=== PATIENT | female | born 1940 | race Caucasian/White ===

== ENCOUNTER 2019-01-18 13:28 | Inpatient (IN) | payer MEDICARE, OTHER ==
[2019-01-18 14:44] LABS: % LYMPHOCYTES 3.2 % (20.0-50.0); % MONOCYTES 1.8 % (2.0-10.0); % NEUTROPHILS 91.8 % (40.0-80.0); BASOPHILE ABSOLUTE 0.4 Th/cumm (0-0.2); HEMATOCRIT 40.7 % (41.0-60); HEMOGLOBIN 13.8 gm/dL (12-16); LYMPHOCYTE ABSOLUTE 0.4 Th/cmm (1.5-3.0); MEAN CELL VOLUME 95.1 fl (81-100); MEAN CORPUSCULAR HEMOGLOBIN 32.1 pg (27.0-31.0); MEAN CORPUSCULAR HGB CONC 33.8 pg (28.0-36.0); MONOCYTE ABSOLUTE 0.2 Th/cmm (0.3-1.0); NEUTROPHILE ABSOLUTE 11.9 Th/cmm (1.8-8.0); PLATELET COUNT 306 Th/cmm (150-400); RED BLOOD COUNT 4.28 Mil/cmm (3.80-5.20); RED CELL DISTRIBUTION WIDTH 12.8 % (11.5-20.0); WHITE BLOOD COUNT 12.9 Th/cmm (4.8-10.8)
[2019-01-18 14:45] LABS: % BASOPHILS 3.1 % (0.0-2.0); % EOSINOPHILS 0.1 % (0.0-5.0)
[2019-01-18 14:58] LABS: INR 1.05 (0.5-1.4)
[2019-01-18 15:03] LABS: ALB/GLOB RATIO 1.3 (1.0-1.8); ALBUMIN 3.5 gm/dL (3.7-5.3); ALKALINE PHOSPHATASE 70 U/L (34-104); ANION GAP 13.8 (7.0-16.0); BILIRUBIN,TOTAL 0.4 mg/dL (0.3-1.0); BUN - UREA NITROGEN 30 mg/dL (7-25); CALCIUM SERUM 8.7 mg/dL (8.6-10.3); CARBON DIOXIDE 22.3 mEq/L (21.0-31.0); CHLORIDE 84 mEq/L (98-107); CREATININE KINASE 61 U/L (30-223); GLUCOSE 281 mg/dL (70-105); POTASSIUM SERUM 4.1 mEq/L (3.5-5.1); SGOT 15 U/L (13-39); SGPT/ALT 11 U/L (7-52); TOTAL PROTEIN,SERUM 6.2 gm/dL (6.0-8.3)
[2019-01-18 15:06] LABS: SODIUM SERUM 116 mEq/L (136-145)
--- NOTE | 2019-01-18 15:09 | ED Physician Chart ---
ED Chief Complaint/HPI - Patient Information Date Seen:: 01/18/19 Time Seen:: 13:40 Chief Complaint:: Weakness History of Present Illness:: onset x 3 days of weakness, failure to thrive, and poor oral intake; no report of trauma, H/As, neck pain, cough, C/P, SOB, Abd. PAIN< A/N/V/D/C, fever, chills , or urinary s/s Allergies:: Allergies Allergy/AdvReac Type Severity Reaction Status Date / Time lactose Allergy Verified 01/18/19 13:41 Vitals:: Vital Signs - 8 hr 01/18/19 13:42 Temp 98.2 F HR 89 RR 22 BP 123/55 O2 Sat % 95 Historian:: Patient, EMS, Family Member Review:: Nurse's Note Reviewed, Old Chart Reviewed, EMS run form Reviewed ED Review of Systems - Review of Systems General/Constitutional: No fever, No chills, No weight loss, Weakness, No diaphoresis, No edema, No loss of appetite Skin: No skin lesions, No rash, No bruising Head: No headache, No light-headedness Eyes: No loss of vision, No pain, No diplopia ENT: No earache, No nasal drainage, No sore throat, No tinnitus Neck: No neck pain, No swelling, No thyromegaly, No stiffness, No mass noted Cardio Vascular: No chest pain, No palpitations, No PND, No orthopnea, No edema Pulmonary: No SOB, No cough, No sputum, No wheezing GI: No nausea, No vomiting, No diarrhea, No pain, No melena, No hematochezia, No constipation, No hematemesis G/U: No dysuria, No frequency, No hematuria, No nacturia Wastewater Design Engineer: No vaginal discharge, No abnormal vaginal bleed, No contraction Musculoskeletal: No bone or joint pain, No back pain, No muscle pain Endocrine: No polyuria, No polydipsia Psychiatric: No prior psych history, No depression, No anxiety, No suicidal ideation, No homicidal ideation, No auditory hallucination, No visual hallucination Hematopoietic: No bruising, No lymphadenopathy Allergic/Immuno: No urticaria, No angioedema Neurological: No syncope, No focal symptoms, Weakness, No paresthesia, No headache, No seizure, No dizziness, No vertigo ED Past Medical History - Past Medical History Obtainable: Yes Past Medical History: HTN, DM, Dyslipidemia, Arthritis, Dementia Family History: Diabetes Melitus, HTN Social History: Non Smoker, No Alcohol, No Drug Use, , Care Facility Surgical History: None Psychiatricy History: Dementia Medication: Reviewed ED Physical Exam - Physical Examination General/Constitutional: Awake, Well-developed, well-nourished, Alert, No distress, GCS 15, Non-toxic appearing, Ambulatory Head: Atraumatic Eyes: Lids, conjuctiva normal, PERRL, EOMI Skin: Nl inspection, No rash, No skin lesions, No ecchymosis, Well hydrated, No lymphadenopathy ENMT: External ears, nose nl, TM canals nl, Nasal exam nl, Lips, teeth, gums nl , Oropharynx nl, Tonsils nl Neck: Nontender, Full ROM w/o pain, No JVD, No nuchal rigidity, No bruit, No mass, No stridor Respiratory: Nl effort/Exclusion, Clear to Auscultation, No Wheeze/Rhonchi/Rales Cardio Vascular: RRR, No murmur, gallop, rubs, NL S1 S2, Carotid/Femoral/Distal pulses equal bilaterally GI: No tenderness/rebounding/guarding, No organomegaly, No hernia, Normal BS's, Nondistended, No mass/bruits, No McBurney tenderness : No CVA tenderness Extremities: No tenderness or effusion, Full ROM, normal strength in all extremities, No edema, Normal digits & nails Neuro/Psych: Alert/oriented, DTR's symmetric, Normal sensory exam, Normal motor strength, Judgement/insight normal, Mood normal, Normal gait, No focal deficits Misc: Normal back, No paraspinal tenderness ED Labs/Radiology/EKG Results - Lab Results Results: Laboratory Tests 01/18/19 01/18/19 14:34 14:34 WBC 12.9 H RBC 4.28 Hgb 13.8 Hct 40.7 L MCV 95.1 MCH 32.1 H MCHC Differential 33.8 RDW 12.8 Plt Count 306 MPV 7.3 Neutrophils % 91.8 H Lymphocytes % 3.2 L Monocytes % 1.8 L Eosinophils % 0.1 Basophils % 3.1 H Neutrophils (Manual) Not Reportable PT 10.9 INR 1.05 PTT (Actin FS) 32.8 Comments:: Reviewed - Radiology Results Comments:: CXR: + Infiltrate - EKG Interpretations Rate & Rhythm: NSR Comments:: non-specific st-t changes ED Septic Shock - . Is Septic Shock (SBP<90, OR Lactate>4 mmol\L) present?: No - <6hrs of presentation: Vital Signs: Vital Signs - 8 hr 01/18/19 13:42 Temp 98.2 F HR 89 RR 22 BP 123/55 O2 Sat % 95 ED Reassessment (Disposition) - Reassessment Reassessment Condition:: Improved - Diagnosis Diagnosis:: Weakness; Failure to Thrive; Poor Oral Intake; Dehydration; Hyponatremia; Leukocytosis; PNA; Sepsis; Hyperglycemia; Lactic Acidosis; DM; Elevated Lactic Acid - Aftercare/Follow up Instructions Aftercare/Follow-Up Instructions:: Counseled pt regarding lab results/diagnosis & need follow up, Counseled pt & family regarding lab results/diagnosis & need follow up - Patient Disposition Discharge/Transfer:: Acute Care w/in this hosp Accepting Physician:: Dr. Jorgensen Time Called:: 1529 Time Responded:: 15:30 Admitted to:: Telemetry Spoke to:: Dr. Jorgensen Admitting Medical Physician:: Dr. Jorgensen Condition at Disposition:: Stable, Improved
[2019-01-18] MEDS ORDERED: Levofloxacin 500mg/100mL 500 MG/100 ML BAG IV ONE ×2 (15:12→16:16)
[2019-01-18] MEDS ORDERED: Sodium Chloride 0.9% 1,000 ML IV ONE (15:12)
[2019-01-18] MEDS ORDERED: INSULIN HUMAN REGULAR 100 UNITS/ML UNIT SUBQ ONE (15:13)
[2019-01-18 16:45] LABS: URINE SOURCE MIDSTREAM
[2019-01-18 16:53] LABS: URINE BILIRUBIN NEGATIVE (NEGATIVE); URINE BLOOD TRACE (NEGATIVE); URINE GLUCOSE (UA) 100 mg/dL (NEGATIVE); URINE KETONE NEGATIVE (NEGATIVE); URINE LEUKOCYTE ESTERASE NEGATIVE (NEGATIVE); URINE MICROSCOPIC INDICATED? YES; URINE NITRATE NEGATIVE (NEGATIVE); URINE PH 5.5 (4.6 - 8.0); URINE PROTEIN NEGATIVE (NEGATIVE); URINE UROBILINOGEN 0.2 E.U./dL (0.2 - 1.0)
[2019-01-18 16:57] LABS: URINE CLARITY CLEAR (CLEAR); URINE COLOR YELLOW
[2019-01-18 17:07] LABS: URINE WBC NONE SEEN /hpf (0-5)
[2019-01-18 17:08] LABS: URINE BACTERIA NONE SEEN /hpf (NONE SEEN); URINE EPITHELIAL CELLS RARE /lpf (FEW); URINE RED BLOOD CELL CAST 0-2 /lpf (NONE SEEN)
[2019-01-18 17:09] LABS: URINE FINE GRANULAR CAST 0-2 /lpf (NONE SEEN)
[2019-01-18 22:34] VITALS: BP 135/67
[2019-01-18] MEDS: Hydrocodone/APAP 5mg/325mg Tab PO PRN (22:49)
[2019-01-19] MEDS ORDERED: Sodium Chloride 3% 500 ML IV ONE (01:35)
[2019-01-19 05:21] LABS: BASOPHILE ABSOLUTE 0.1 Th/cumm (0-0.2); EOSINOPHILE ABSOLUTE 0.1 Th/cmm (0.1-0.4); HEMATOCRIT 38.1 % (41.0-60); HEMOGLOBIN 13.1 gm/dL (12-16); LYMPHOCYTE ABSOLUTE 0.7 Th/cmm (1.5-3.0); MEAN CELL VOLUME 95.1 fl (81-100); MEAN CORPUSCULAR HEMOGLOBIN 32.6 pg (27.0-31.0); MEAN CORPUSCULAR HGB CONC 34.3 pg (28.0-36.0); MONOCYTE ABSOLUTE 0.3 Th/cmm (0.3-1.0); NEUTROPHILE ABSOLUTE 13.3 Th/cmm (1.8-8.0); PLATELET COUNT 273 Th/cmm (150-400); RED BLOOD COUNT 4.01 Mil/cmm (3.80-5.20); RED CELL DISTRIBUTION WIDTH 12.8 % (11.5-20.0); WHITE BLOOD COUNT 14.5 Th/cmm (4.8-10.8)
[2019-01-19 05:41] LABS: % BASOPHILS 0.2 % (0.0-2.0); % EOSINOPHILS 0.8 % (0.0-5.0); % LYMPHOCYTES 4.3 % (20.0-50.0); % MONOCYTES 2.3 % (2.0-10.0); % NEUTROPHILS 92.4 % (40.0-80.0)
[2019-01-19 06:05] LABS: A1C 6.1 % (4.8-5.6)
[2019-01-19 06:06] LABS: ANION GAP 12.9 (7.0-16.0); BUN - UREA NITROGEN 25 mg/dL (7-25); CALCIUM SERUM 8.1 mg/dL (8.6-10.3); CARBON DIOXIDE 22.3 mEq/L (21.0-31.0); CHLORIDE 88 mEq/L (98-107); CREATININE - SERUM 0.8 mg/dL (0.6-1.2); POTASSIUM SERUM 4.2 mEq/L (3.5-5.1)
[2019-01-19 06:13] LABS: SODIUM SERUM 119 mEq/L (136-145)
[2019-01-19 06:16] LABS: BASOPHIL 0.8 % (0-3); EOSINOPHIL 0.5 % (0-5); MONOCYTE 2.4 % (2-10); NEUTROPHILS 91.3 % (40-80)
[2019-01-19 07:45] LABS: GLUCOSE 118 mg/dL (70-105)
--- NOTE | 2019-01-19 08:24 | Diagnostic Imaging Report ---
Portable chest x-ray Time: 1457 History: Pain Allowing for portable technique the heart size is normal. No focal pulmonary parenchymal processes. No hilar or mediastinal abnormalities. Impression: No acute abnormalities.
[2019-01-19] MEDS ORDERED: Pneumococcal Vaccine 0.5 mL Vial IM ONE (10:00)
[2019-01-19] MEDS: Hydrocodone/APAP 5mg/325mg Tab PO PRN (10:50)
[2019-01-19] MEDS ORDERED: Hydrocodone/APAP 5mg/325mg Tab PO ONE (12:30)
[2019-01-19] MEDS: Mag Sulfate 2gm/50mL Premix 2 GM/50 ML BAG IV SCH ×2 (12:34→15:00)
[2019-01-19] MEDS: Levofloxacin 250mg/50mL 250 MG/50 ML BAG IV SCH (15:57)
[2019-01-19] MEDS: D5-0.9%NS 1,000 ML IV SCH (17:22)
[2019-01-19] MEDS ORDERED: Hydrocodone/APAP 5mg/325mg Tab PO PRN (17:42)
--- NOTE | 2019-01-19 17:55 | History & Physical ---
ADMIT DATE: 01/19/2019 CHIEF COMPLAINT: Increase in weakness. HISTORY OF PRESENT ILLNESS: This is a 78-year-old female who has a 3-day history of increase of weakness, poor oral intake. In the ER, the patient was noted to be hyponatremic of 116 and a lactic acid of 2.62. No reports of any fevers at home. For further management, the patient is now admitted to the telemetry unit. PAST MEDICAL HISTORY: Hypertension, diabetes, dyslipidemia, arthritis, and dementia. FAMILY HISTORY: Noncontributory. SOCIAL HISTORY: The patient is a intermediate resident. SURGICAL HISTORY: Unknown. MEDICATIONS: See medication list. REVIEW OF SYSTEMS: GENERAL: Denies any complains of weakness. CARDIOVASCULAR: Denies chest pain. RESPIRATORY: No shortness of breath. GASTROINTESTINAL: Denies nausea, vomiting, or abdominal pain. GENITOURINARY: No dysuria. All other systems are reviewed. PHYSICAL EXAMINATION: GENERAL: The patient is an elderly female, weak, in no apparent distress. VITAL SIGNS: Temperature 97.6, heart rate 95, blood pressure 152/63, respiration 18, O2 97%. HEENT: Head normocephalic, atraumatic. NECK: Supple. No mass. LUNGS: Clear bilaterally. HEART: Regular rate and rhythm. ABDOMEN: Soft, nontender. LABORATORY DATA: WBC 14.5, H and H 13.1 and 38.1, platelets of 273. Sodium of 119, potassium 4.2, chloride of 88, BUN 25, creatinine 0.8, magnesium of 1.8. The patient had a urinalysis done, positive for UTI. DIAGNOSTIC DATA: The patient had a chest x-ray done. Impression is no acute abnormalities. ASSESSMENT: Failure to thrive, lactic acidosis, rule out possible sepsis, acute UTI, hypomagnesemia, severe hyponatremia, vasomotor nephropathy, hypocalcemia, moderate protein-calorie malnutrition. PLAN: The patient to be admitted to the telemetry unit. We will get a motion picture projectionist as well as ID on the case. We will give the patient IV fluids for hydration. The patient is on IV antibiotics of Levaquin. We will continue to monitor this patient. JOB# [id number]
[2019-01-19] MEDS ORDERED: Simethicone 20 mg/0.3 mL 30mL Bottle PO PRN (21:09)
--- NOTE | 2019-01-20 03:14 | Consultation ---
DATE OF CONSULTATION: AGE OF THE PATIENT: 78 years. SEX: Female. HISTORY OF PRESENT ILLNESS: This is a patient who was having significant pains and aches in the abdomen and lower extremities, was brought in here because of the fact on further evaluation was noted to be having marked hyponatremia. On direct questioning, the patient states she has been having high blood pressure for some time, for which she had been on medications. She gets aches and pains in the legs and also the back for which she takes some arthritic medications. No other significant history could be elicited except that the patient had some sort of a bone biopsy from the skull because there was suspected of tumor, which came out to be negative and that was done in [facility] in [place]. In addition to that, the patient also has an umbilical hernia repair. Besides that, she denies any history of any other surgeries. The patient seems to be awake, alert, seems to be in pain because legs are cramping. The patient also stated that she had yesterday 5 bowel movements, loose with cramping and pain. She does not remember whether she looked at them very well or not and as per her taking out here, there was no blood there, but they were loose, runny and mushy. The patient denies any such problems before yesterday. The patient does not remember if patient was on any water pills. MEDICATIONS: Her current medications include, as per the records, amlodipine 5 mg p.o. daily. The patient is also on ranitidine 150 mg p.o. b.i.d. The patient is also on hydrocodone, acetaminophen combination one tablet b.i.d. Besides that, the patient is on some meloxicam 7.5 mg p.o. b.i.d., Xanax 0.25 mg p.o. daily. The patient is also on lisinopril 20 mg p.o. daily and the patient at present is on levothyroxine 75 mcg p.o. daily. No other medications as far as patient knows or the nurse knows. The patient's clinical examination reveals at present, conscious, cooperative, good historian. 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 She never smoked, but she was exposed to smoke and she hated that. She did not have any major lung problem, but still feels that she might have been affected by that. On further questioning, no other significant history could be elicited. The patient had a high blood pressure problem for quite some time. PHYSICAL EXAMINATION: GENERAL: Reveals the patient to be conscious, cooperative, alert, seems to be in mild to moderate pain. VITAL SIGNS: The patient's vitals yesterday afternoon revealed temperature 98.2, heart rate 89, rate 22 per minute, blood pressure 123/55, saturation ____. NECK: Jugular venous pressure clinically is not raised. CHEST: Reveals reasonably good air entry bilaterally. HEART: Sounds S1, S2 normally heard. No S3 or S4 noticed. ABDOMEN: Soft, nontender, but she complains of ____ cramps or pains in the right side of the abdomen. The patient had "as said 5 bowel movements yesterday and 1 bowel movement this morning," this morning was loose, dark colored and smelly as per the nurse. EKG reveals basically sinus rhythm at a rate of about 90 per minute. Skin turgor seems to be normal. The patient at present is getting 15 mL per hour, 3% saline. Biochemical data from yesterday was sodium 116 when she presented, chloride 84, CO2 content 22, potassium 4.1, albumin 3.5, calcium 8.7. Liver enzymes essentially normal. There was a lactic acid done, which was 2.62, BUN was 30, creatinine was 1.0 and glucose was 281. This morning, the patient's WBC count is 14.5, hemoglobin 13.1, WBC count as already mentioned, differential reveals 92% neutrophils. Sodium 119, potassium 4.2, chloride 88, CO2 content 22, creatinine 0.8, and calcium 8.1. IMPRESSION: 1. Considering the above, it seems like to me at present patient does have a significant hyponatremia, could be for multiple reasons including diarrhea and including lost sodium. 2. The patient may also have an underlying problem due to diarrhea, losing salt, but also to rule out any underlying other problems like syndrome of inappropriate ADH salt losing nephropathy or patient might have been on diuretics because she is hypotensive. PLAN: At present, would suggest: 1. Do stool for C. difficile toxin because she had 5 loose bowel movements yesterday. 2. Magnesium level stat. 3. Giving some IV fluids with 3% sodium 150 mL and then patient may be on D5 normal saline to provide both dextrose and IV fluids so that she does not become dehydrated. In the meantime, the patient would be treated accordingly for infection because it looks like she does have some sort of an infective process because of leukocyte count of 92%, history of diarrhea and C. difficile is one of the common ones, but the patient could also have other problems with enteric bacteria. Would repeat the chemistries and follow it closely. Thanking you very much Dr. Jorgensen for this consultation and I will talk to you. JOB# [id number]
[2019-01-20 05:08] LABS: HEMATOCRIT 36.5 % (41.0-60); HEMOGLOBIN 12.5 gm/dL (12-16); MEAN CELL VOLUME 93.7 fl (81-100); MEAN CORPUSCULAR HEMOGLOBIN 32.2 pg (27.0-31.0); MEAN CORPUSCULAR HGB CONC 34.3 pg (28.0-36.0); PLATELET COUNT 292 Th/cmm (150-400); RED BLOOD COUNT 3.89 Mil/cmm (3.80-5.20); RED CELL DISTRIBUTION WIDTH 12.9 % (11.5-20.0)
[2019-01-20 05:57] LABS: BAND NEUTROPHILE 12 % (0-10); LYMPHOCYTE 11 % (20-50); MONOCYTE 7 % (2-10); NEUTROPHILS 70 % (40-80); PLATELET ESTIMATE ADEQUATE (NORMAL)
[2019-01-20 06:08] LABS: ALB/GLOB RATIO 1.2 (1.0-1.8); ALBUMIN 2.8 gm/dL (3.7-5.3); ALKALINE PHOSPHATASE 56 U/L (34-104); ANION GAP 10.8 (7.0-16.0); BILIRUBIN,TOTAL 0.3 mg/dL (0.3-1.0); CALCIUM SERUM 7.7 mg/dL (8.6-10.3); CARBON DIOXIDE 21.3 mEq/L (21.0-31.0); CHLORIDE 95 mEq/L (98-107); CREATININE - SERUM 0.7 mg/dL (0.6-1.2); GLUCOSE 132 mg/dL (70-105); MAGNESIUM 2.4 mg/dL (1.9-2.7); POTASSIUM SERUM 4.1 mEq/L (3.5-5.1); SGOT 12 U/L (13-39); SGPT/ALT 7 U/L (7-52); SODIUM SERUM 123 mEq/L (136-145); TOTAL PROTEIN,SERUM 5.2 gm/dL (6.0-8.3)
[2019-01-20 06:25] LABS: BUN - UREA NITROGEN 13 mg/dL (7-25)
[2019-01-20] MEDS: Levothyroxine 0.075 Mg Tab PO SCH (06:36)
[2019-01-20] MEDS ORDERED: Sodium Chloride 3% 500 ML IV ONE (08:22)
[2019-01-20] MEDS: Vancomycin HCL 250 mg /10mL UDC PO SCH ×4 (08:39→20:11)
[2019-01-20] MEDS ORDERED: Non-Formulary Item 1 EA (Meloxicam [Meloxicam] 7.5 MG) PO SCH (09:00)
[2019-01-20] MEDS: Hydrocodone/APAP 5mg/325mg Tab PO PRN ×3 (09:03→21:28)
--- NOTE | 2019-01-20 09:34 | Consultation ---
DATE OF CONSULTATION: 01/19/2019 PSYCHIATRIC CONSULTATION PATIENT'S AGE: 78. SEX: Female. CHIEF COMPLAINT: Depression. HISTORY OF PRESENT ILLNESS: The patient is a 78-year-old female who is a resident in the [facility]. The staff in [facility] noted that the patient has been increasingly depressed and anxious. The patient also has been feeling hopeless and helpless. The patient also has been crying a lot. Upon admission to the hospital, the patient was complaining of diarrhea and the patient was admitted to the Med-Surg floor, where I evaluated the patient. The patient has been depressed because of "I have a lot of pain." The patient has been feeling hopeless and helpless. She also has been crying a lot. The patient said that she was living with her because of increased pain. The patient was moved to live in the [facility] temporarily because her son is unable to take care of her at this time. The patient also has been having difficulty with her sleep and has been severely anxious. PAST PSYCHIATRIC HISTORY: The patient has anxiety and was taking Xanax. PAST MEDICAL HISTORY: The patient was admitted to the hospital because of diarrhea and the stool culture came back positive for C. diff and she is on antibiotics at this time. The patient has a history of hypothyroidism also. SOCIAL HISTORY: The patient is a and her 5 years ago. The patient said that she has 6 children. The patient denies any alcohol or any street drug use. ALLERGIES: No known allergies. MENTAL STATUS EXAM: The patient appears her stated age. Anxious. Sad affect. In a depressed mood. Thought processes are mainly goal directed. The patient denies any auditory or visual hallucinations or delusions. She denies any thoughts of suicide or homicide. The patient is alert and oriented to time, place, person and situation. Intact immediate, recent and remote memories. Fair insight and fair judgment. Seems to be of average intelligence based on her verbal ability. ASSESSMENT: PRIMARY DIAGNOSIS: Depressive mood disorder, unspecified. TREATMENT PLAN: We will monitor the patient's behavior closely. We will work on her ineffective coping. We will start the patient on Cymbalta 30 mg every day and we will adjust the dose. Also, if the patient continued to be depressed when medically cleared, the patient is a candidate to go for inpatient Geropsych to adjust her medications and work on her ineffective coping. Thanks to Dr. Andrés Scanlon/Dr. Jorgensen and will followup with you. JOB# [id number]
[2019-01-20] MEDS ORDERED: metroNIDAZOLE 500mg/NS 100mL 500 MG/100 ML BAG IV SCH (13:00)
--- NOTE | 2019-01-20 16:06 | Internal Medicine Prog Note ---
Internal Medicine Subjective - Subjective Service Date: 01/20/19 Patient seen and examined:: with staff Patient is:: awake, verbal Patient Complaints of:: other (Increased weakness.) Per staff patient has:: no adverse event, no episodes of fall Internal Medicine Objective - Results Result Diagrams: 01/20/19 04:55 01/20/19 04:55 Recent Labs: Laboratory Last Values WBC 14.0 Th/cmm (4.8-10.8) H 01/20/19 04:55 RBC 3.89 Mil/cmm (3.80-5.20) 01/20/19 04:55 Hgb 12.5 gm/dL (12-16) 01/20/19 04:55 Hct 36.5 % (41.0-60) L 01/20/19 04:55 MCV 93.7 fl (81-100) 01/20/19 04:55 MCH 32.2 pg (27.0-31.0) H 01/20/19 04:55 MCHC Differential 34.3 pg (28.0-36.0) 01/20/19 04:55 RDW 12.9 % (11.5-20.0) 01/20/19 04:55 Plt Count 292 Th/cmm (150-400) 01/20/19 04:55 MPV 6.9 fl 01/20/19 04:55 Add Manual Diff YES 01/20/19 04:55 Neutrophils % 92.4 % (40.0-80.0) H 01/19/19 05:05 Band Neutrophils % 12 % (0-10) H 01/20/19 04:55 Lymphocytes % 4.3 % (20.0-50.0) L 01/19/19 05:05 Monocytes % 2.3 % (2.0-10.0) 01/19/19 05:05 Eosinophils % 0.8 % (0.0-5.0) 01/19/19 05:05 Basophils % 0.2 % (0.0-2.0) 01/19/19 05:05 Neutrophils (Manual) 70 % (40-80) 01/20/19 04:55 Lymphocytes 11 % (20-50) L 01/20/19 04:55 Monocytes 7 % (2-10) 01/20/19 04:55 Eosinophils 0.5 % (0-5) 01/19/19 05:05 Basophils 0.8 % (0-3) 01/19/19 05:05 Platelet Estimate ADEQUATE (NORMAL) 01/20/19 04:55 PT 10.9 SECONDS (9.5-11.5) 01/18/19 14:34 INR 1.05 (0.5-1.4) 01/18/19 14:34 PTT (Actin FS) 32.8 SECONDS (26.0-38.0) 01/18/19 14:34 Sodium 123 mEq/L (136-145) L 01/20/19 04:55 Potassium 4.1 mEq/L (3.5-5.1) 01/20/19 04:55 Chloride 95 mEq/L (98-107) L 01/20/19 04:55 Carbon Dioxide 21.3 mEq/L (21.0-31.0) 01/20/19 04:55 Anion Gap 10.8 (7.0-16.0) 01/20/19 04:55 BUN 13 mg/dL (7-25) 01/20/19 04:55 Creatinine 0.7 mg/dL (0.6-1.2) 01/20/19 04:55 Est GFR ( Amer) TNP 01/20/19 04:55 Est GFR (Non-Af Amer) TNP 01/20/19 04:55 BUN/Creatinine Ratio 18.6 01/20/19 04:55 Glucose 132 mg/dL (70-105) H 01/20/19 04:55 Whole Bld Lactic Acid 1.90 mmol/L (0.60-1.99) 01/18/19 16:40 Uric Acid 3.0 mg/dL (2.3-6.6) 01/20/19 04:55 Calcium 7.7 mg/dL (8.6-10.3) L 01/20/19 04:55 Magnesium 2.4 mg/dL (1.9-2.7) 01/20/19 04:55 Total Bilirubin 0.3 mg/dL (0.3-1.0) 01/20/19 04:55 AST 12 U/L (13-39) L 01/20/19 04:55 ALT 7 U/L (7-52) 01/20/19 04:55 Alkaline Phosphatase 56 U/L (34-104) 01/20/19 04:55 Creatine Kinase 61 U/L (30-223) 01/18/19 14:34 Troponin I 0.03 ng/mL (0.01-0.05) 01/18/19 14:34 Total Protein 5.2 gm/dL (6.0-8.3) L 01/20/19 04:55 Albumin 2.8 gm/dL (3.7-5.3) L 01/20/19 04:55 Globulin 2.4 gm/dL 01/20/19 04:55 Albumin/Globulin Ratio 1.2 (1.0-1.8) 01/20/19 04:55 Urine Source MIDSTREAM 01/18/19 16:00 Urine Color YELLOW 01/18/19 16:00 Urine Clarity CLEAR (CLEAR) 01/18/19 16:00 Urine pH 5.5 (4.6 - 8.0) 01/18/19 16:00 Ur Specific [place] 1.020 (1.005-1.030) 01/18/19 16:00 Urine Protein NEGATIVE mg/dL (NEGATIVE) 01/18/19 16:00 Urine Glucose (UA) 100 mg/dL (NEGATIVE) H 01/18/19 16:00 Urine Ketones NEGATIVE mg/dL (NEGATIVE) 01/18/19 16:00 Urine Blood TRACE (NEGATIVE) 01/18/19 16:00 Urine Nitrate NEGATIVE (NEGATIVE) 01/18/19 16:00 Urine Bilirubin NEGATIVE (NEGATIVE) 01/18/19 16:00 Urine Urobilinogen 0.2 E.U./dL (0.2 - 1.0) 01/18/19 16:00 Ur Leukocyte Esterase NEGATIVE (NEGATIVE) 01/18/19 16:00 Urine RBC 10-25 /hpf (0-5) H 01/18/19 16:00 Urine WBC NONE SEEN /hpf (0-5) 01/18/19 16:00 Ur Epithelial Cells RARE /lpf (FEW) 01/18/19 16:00 Urine Bacteria NONE SEEN /hpf (NONE SEEN) 01/18/19 16:00 Fine Granular Casts 0-2 /lpf (NONE SEEN) H 01/18/19 16:00 RBC Casts 0-2 /lpf (NONE SEEN) H 01/18/19 16:00 - Physical Exam Vitals and I&O: Vital Signs Temp 97.8 F 01/20/19 12:00 Pulse 82 01/20/19 12:00 Resp 18 01/20/19 14:35 BP 120/47 01/20/19 12:00 Pulse Ox 96 01/20/19 12:00 Intake & Output 01/19/19 01/20/19 01/20/19 18:59 06:59 18:59 Intake Total 100 200 Balance 100 200 Weight (lbs) 72.575 kg Intake: Intake, IV Amount 100 Levofloxacin 250mg/50mL 50 250 mg In 50 ml @ 50 mls/ hr IV Q24HR [facility] Rx#: [id number] Mag Sulfate 2gm/50mL 50 Premix 2 gm In 50 ml @ 25 mls/hr IV Q2H [facility] Rx#: [id number] Oral 200 Other: # Voids 2 # Bowel Movements 4 Stool Characteristics Soft Soft Soft Formed Formed Formed Weight Source Estimated Active Medications: Current Medications Acetaminophen/Hydrocodone Bitart ([place] 5mg/325mg) 1 tab PO Q6H PRN PRN Reason: Severe Pain Stop: 03/20/19 21:11 Last Admin: 01/20/19 15:36 Dose: 1 tab Alprazolam (Xanax) 0.25 mg PO Q12HR [facility]; Protocol Stop: 03/19/19 20:59 Last Admin: 01/20/19 09:02 Dose: Not Given Alprazolam (Xanax) 0.25 mg PO DAILY PRN; Protocol PRN Reason: Anxiety Stop: 03/20/19 17:41 Amlodipine Besylate (Norvasc) 5 mg PO DAILY [facility] Stop: 03/21/19 08:59 Last Admin: 01/20/19 08:41 Dose: 5 mg Baclofen (Lioresal) 10 mg PO TID PRN PRN Reason: Leg Cramps Stop: 03/19/19 20:59 Last Admin: 01/20/19 08:40 Dose: 10 mg Celecoxib (Celebrex) 100 mg PO BID [facility] Stop: 03/21/19 16:59 Duloxetine HCl (Cymbalta) 30 mg PO DAILY [facility]; Protocol Stop: 03/21/19 08:59 Famotidine (Pepcid) 20 mg PO DAILY [facility] Stop: 03/21/19 08:59 Last Admin: 01/20/19 08:40 Dose: 20 mg Levofloxacin (Levaquin Pb) 250 mg in 50 mls @ 50 mls/hr IV Q24HR [facility]; Protocol Stop: 03/20/19 15:59 Last Infusion: 01/19/19 16:57 Dose: Infused Dextrose/Sodium Chloride (D5-0.9%Ns) 1,000 mls @ 30 mls/hr IV .Q24H TC Stop: 03/20/19 17:29 Last Admin: 01/19/19 17:22 Dose: 30 mls/hr Metronidazole (Flagyl) 500 mg in 100 mls @ 100 mls/hr IV Q8HR TC Stop: 02/03/19 12:59 Last Admin: 01/20/19 13:16 Dose: 100 mls/hr Levothyroxine Sodium (Synthroid) 0.075 mg PO QDAC TC Stop: 03/21/19 07:29 Last Admin: 01/20/19 06:36 Dose: 0.075 mg Lisinopril (Zestril) [address] Stop: 03/21/19 08:59 Last Admin: 01/20/19 08:40 Dose: 20 mg Simethicone (Mylicon) 80 mg PO TID PRN PRN Reason: Gas Stop: 03/20/19 21:14 Last Admin: 01/20/19 05:00 Dose: 80 mg Vancomycin HCl (Vancomycin Oral) 250 mg PO QID TC Stop: 03/21/19 08:59 Last Admin: 01/20/19 12:12 Dose: 250 mg Physical Exam: 78 y/o female patient has increased weakness, depression and anxiety. General: weak, demented HEENT: NC/AT Neck: Supple Lungs: CTAB Cardiovascular: RRR, Normal S1 Abdomen: soft, non-tender Extremities: clear Neurological: no change Internal Medicine Assmt/Plan - Assessment Assessment: Diabetes. Arthritis. Dementia. Htn. Hx of Dyslipidemia. Increased weakness. Hypothyroidism. Anxiety. Depressed mood disorder. - Plan Plan: Continuation of care. Monitor Labs. Continue present meds as directed. Monitor vitals, Continue BP meds as directed. Monitor Diet/Nutritional support. Psych management per Psych. Pain Management. Physical therapy. Occupational therapy. Fall precaution, frequent nursing rounds, and as needed restraints to prevent fall. Safety precaution. Supportive care. Continue collaborating with consulting specialists, case management and nursing team. Will Monitor patient and continue current treatment plan as ordered Nutritional Asmnt/Malnutr-PDOC - Dietary Evaluation Malnutrition Findings (Please click <Entered> for more info): Nutritional Asmnt/Malnutrition Start: 01/19/19 14: 04 Text: Status: Complete Freq: Protocol: Document 01/19/19 14:04 SERAFIN (Rec: 01/19/19 14:29 SERAFIN [id number]) Nutritional Asmnt/Malnutrition Patient General Information Nutritional Screening High Risk Diagnosis HYPONATREMIA, DEHYDRATION, SEPSIS Pertinent Medical Hx/Surgical Hx HTN, DM, DYSLIPIDEMIA, ARTHRITIS, DEMENTIA Subjective Information PT IS A 78 YEAR OLD FEMALE ADMITTED D/T HYPONATREMIA, DEHYDRATION, SEPSIS. HT: 55 WT: 126 (57.27KG) BMI: 21.01 (Normal) GI: WNL, Non-tender, round BM: 01/19 x 6 I/O: 400/500 (-100) SKIN: Intact, redness on Sacrum LAUREN: 15 DIET ORDER: PUREED ESTIMATED ENERGY NEEDS: (Based on CBW) 8921-0617 KCALS (25-30 KCALS/ KG) 57-68G PRO (1-1.2 G/KG) 5178-5296 ML FLUIDS (25-30 ML/ KG) PT PO INTAKE 50% AT BREAKFAST AND 75% AT LUNCH ON 01/19, PER ERUM PINO IS CURRENTLY PROVIDING AN ESTIMATED 2537 KCALS AND 116.8 GM PRO. WITH PT PO INTAKE, PT IS RECEIVING AN ESTIMATED 1585 KCALS AND 73 PRO TO MEET 100% KCAL AND 100% PRO NEEDS-ADEQUATE. Consult on Blood sugar 228: Glucose Level decrease to 118 on 01/19. Will continue to monitor. Current Diet Order/ Nutrition Support Pureed Pertinent Medications D5-0.9na, Magnesium Sulfate @ 25mls/HR @2HRS, Hypertonic 3% @30mls/hr Pertinent Labs 01/19 HGB/HCT 13.1/38.1, Na 119 , Cl 88, GLUC 118, Ca 8.1 01/18 HGB/HCT 13.8/40.7, Na 116 , Cl 84, BUN/Cr 30/1.0, GLUC 281, Alb 3.5 Nutritional Hx/Data Height 1.65 m Height (Calculated Centimeters) 165.1 Current Weight (lbs) 57.153 kg Weight (Calculated Kilograms) 57.2 Weight (Calculated Grams) 34269.6 Grandin Body Weight 57 kg % Grandin Body Weight 105 Body Mass Index (BMI) 20.9 Weight Status Approriate GI Symptoms GI Symptoms None Last BM 01/19 x 6 Skin Integrity/Comment: Intact, redness on Sacrum Current %PO Fair (50-74%) Estimated Nutritional Goals BEE in Kcals: Using Current wt Calories/Kcals/Kg 25-30 Kcals Calculated 2365-0277 Protein: Using Current wt Protein g/k-1.2 Protein Calculated 57-68 Fluid: ml 8130-1258 ML FLUIDS (25-30 ML/ KG) Nutritional Problem 1. Problem Problem Altered nutrition related labs Etiology R/T medical condition Signs/Symptoms: AEB lab result Na 119, Cl 88, GLUC 118, Ca 8.1 Malnutrition Related to Morbid Obesity Malnutrition related to morbid obesity No Intervention/Recommendation Comments 1.Continue puree diet as ordered. Expected Outcomes/Goals Expected Outcomes/Goals 1. MONITOR WT, NUTRITION RELATED LABS, AND SKIN INTEGRITY TO TREND WNL 2. F/U LOW RISK IN 7 DAYS
[2019-01-20] MEDS: Levofloxacin 250mg/50mL 250 MG/50 ML BAG IV SCH (16:38)
--- NOTE | 2019-01-20 17:46 | Consultation ---
Consult Note - Consult Note Service Date: 01/20/19 Referring Physician: Jason Jorgensen Consult Note: PHYSICIAN Consultation Note: Date of Admission: 01/18/19 Purpose of Consultation: C diff colitis Chief Complaint: weakness, diarrhea History of Present Illness: Patient JONI BRIDGES was admitted to [facility] Telemetry with HYPONATREMIA, DEHYDRATION, SEPSIS. Past Medical History: patient is 69 year old female with history of DM2, HTN, for generalized weakness x 3days. It was associated with failure to thrive, and poor oral intake; no report of trauma, H/As, neck pain, cough, C/P, SOB, Abd. PAIN< A/N/V/D/C, fever, chills, or urinary s/s. yesterday, she had developed diarrhea, and stool for c diff was checked it came positive. ID consult was called and vanco po qid was Diagnoses SEPSIS, UNSPECIFIED ORGANISM (01/18/19) MODERATE PROTEIN-CALORIE MALNUTRITION (01/18/19) HYPOMAGNESEMIA (01/18/19) HYPOCALCEMIA (01/18/19) HYPO-OSMOLALITY AND HYPONATREMIA (01/18/19) MAJOR DEPRESSIVE DISORDER, SINGLE EPISODE, UNSPECIFIED (01/18/19) ACUTE KIDNEY FAILURE WITH TUBULAR NECROSIS (01/18/19) URINARY TRACT INFECTION, SITE NOT SPECIFIED (01/18/19) WEAKNESS (01/18/19) Allergies Allergy/AdvReac Type Severity Reaction Status Date / Time lactose Allergy Verified 01/18/19 13:41 Vital Signs Temp 97.7 F 01/20/19 16:00 Pulse 87 01/20/19 16:00 Resp 18 01/20/19 16:00 BP 141/51 01/20/19 16:00 Pulse Ox 99 01/20/19 16:00 Intake & Output 01/19/19 01/20/19 01/20/19 18:59 06:59 18:59 Intake Total 100 200 Balance 100 200 Weight (lbs) 72.575 kg Intake: Intake, IV Amount 100 Levofloxacin 250mg/50mL 50 250 mg In 50 ml @ 50 mls/ hr IV Q24HR [facility] Rx#: [id number] Mag Sulfate 2gm/50mL 50 Premix 2 gm In 50 ml @ 25 mls/hr IV Q2H [facility] Rx#: [id number] Oral 200 Other: # Voids 2 # Bowel Movements 4 Stool Characteristics Soft Soft Soft Formed Formed Formed Weight Source Estimated Laboratory Results - last 24 hr 01/20/19 01/20/19 04:55 04:55 WBC 14.0 H RBC 3.89 Hgb 12.5 Hct 36.5 L MCV 93.7 MCH 32.2 H MCHC Differential 34.3 RDW 12.9 Plt Count 292 MPV 6.9 Add Manual Diff YES Band Neutrophils % 12 H Neutrophils (Manual) 70 Lymphocytes 11 L Monocytes 7 Platelet Estimate ADEQUATE Sodium 123 L Potassium 4.1 Chloride 95 L Carbon Dioxide 21.3 Anion Gap 10.8 BUN 13 Creatinine 0.7 Est GFR ( Amer) TNP Est GFR (Non-Af Amer) TNP BUN/Creatinine Ratio 18.6 Glucose 132 H Uric Acid 3.0 Calcium 7.7 L Magnesium 2.4 Total Bilirubin 0.3 AST 12 L ALT 7 Alkaline Phosphatase 56 Total Protein 5.2 L Albumin 2.8 L Globulin 2.4 Albumin/Globulin Ratio 1.2 Home Medication Medication Instructions Recorded Type Alprazolam [Alprazolam*] 0.25 mg PO DAILY PRN 01/18/19 History Amlodipine Besylate 5 mg PO DAILY 01/18/19 History Hydrocodone/Acetaminophen [[place] 1 each PO BID PRN 01/18/19 History 5-325 Tablet] Levothyroxine [Synthroid] 0.075 mg PO QDAC 01/18/19 History Lisinopril 20 mg PO DAILY 01/18/19 History Meloxicam 7.5 mg PO BID 01/18/19 History Ranitidine HCl 150 mg PO BID 01/18/19 History Current Medications Generic Name Dose Route Start Last Admin Trade Name Freq PRN Reason Stop Dose Admin Acetaminophen/Hydrocodone Bitart 1 tab 01/19/19 21:12 01/20/19 15:36 [place] 5mg/325mg PO 03/20/19 21:11 1 tab Q6H PRN Administration Severe Pain Alprazolam 0.25 mg 01/18/19 21:00 01/20/19 09:02 Xanax PO 03/19/19 20:59 Not Given Q12HR TC Protocol Alprazolam 0.25 mg 01/19/19 17:42 Xanax PO 03/20/19 17:41 DAILY PRN Anxiety Protocol Amlodipine Besylate 5 mg 01/20/19 09:00 01/20/19 08:41 Norvasc PO 03/21/19 08:59 5 mg DAILY TC Administration Baclofen 10 mg 01/18/19 20:59 01/20/19 16:39 Lioresal PO 03/19/19 20:59 10 mg TID PRN Administration Leg Cramps Celecoxib 100 mg 01/20/19 17:00 01/20/19 16:39 Celebrex PO 03/21/19 16:59 100 mg BID TC Administration Dorzolamide HCl 1 drop 01/20/19 17:30 Trusopt 2% Ophth Soln EACH EYE 03/21/19 17:29 BID TC Duloxetine HCl 30 mg 01/20/19 09:00 Cymbalta PO 03/21/19 08:59 DAILY TC Protocol Famotidine 20 mg 01/20/19 09:00 01/20/19 08:40 Pepcid PO 03/21/19 08:59 20 mg DAILY TC Administration Levofloxacin 250 mg in 50 mls @ 50 mls/hr 01/19/19 16:00 01/20/19 16:38 Levaquin Pb IV 03/20/19 15:59 50 mls/hr Q24HR TC Administration Protocol Dextrose/Sodium Chloride 1,000 mls @ 30 mls/hr 01/19/19 17:30 01/19/19 17:22 D5-0.9%Ns IV 03/20/19 17:29 30 mls/hr .Q24H TC Administration Metronidazole 500 mg in 100 mls @ 100 mls/hr 01/20/19 13:00 01/20/19 13:16 Flagyl IV 02/03/19 12:59 100 mls/hr Q8HR TC Administration Levothyroxine Sodium 0.075 mg 01/20/19 07:30 01/20/19 06:36 Synthroid PO 03/21/19 07:29 0.075 mg QDAC TC Administration Lisinopril 20 mg 01/20/19 09:00 01/20/19 08:40 Zestril PO 03/21/19 08:59 20 mg DAILY TC Administration Simethicone 80 mg 01/19/19 21:16 01/20/19 05:00 Mylicon PO 03/20/19 21:14 80 mg TID PRN Administration Gas Timolol Maleate 1 drop 01/20/19 21:00 Timoptic 0.5% Ophth Soln EACH EYE 03/21/19 20:59 BID TC Vancomycin HCl 250 mg 01/20/19 09:00 01/20/19 16:37 Vancomycin Oral PO 03/21/19 08:59 250 mg QID TC Administration Review of Systems: A 12 point ROS was reviewed with the pertinent positive and negatives noted in the HPI. Social History Smoking Status Unknown if ever smoked Drug Use No Alcohol Use No Family Medical History Unknown. Physical Exam: General: Comfortable, not in any acute distress HEENT: Head: NC NT. Oral cavity: moist, pink tongue, Eyes: pupil PERRLA, EOMI. pallor is present. Neck: Supple, no JVD, no carotid bruit. Cardio: s1 and S2 WNL. Respiratory: CTAP Abdominal: Soft, nt nd bs+ Genital/Urinary: Extremities: ncce Neurological: aaox3 Assessment: 1. CDIFF COLITIS. 2. DM2 3. HTN. 4. hyponatremia. 5. dehydration. Plan: YING cagle start vanco PO and questran. Contact isolation. Thank you, Dr Jorgensen for involving me in taking care of this patient. Signed, Andrés Scanlon M.D. [id number]
[2019-01-20] MEDS: D5-0.9%NS 1,000 ML IV SCH (21:27)
--- NOTE | 2019-01-21 02:23 | Progress Notes ---
DATE: 01/20/2019 SUBJECTIVE: This patient who presented with hyponatremia, also problem with diarrhea and feeling very weak. The patient's initial sodium was 116. Other chemistries were reasonably okay except for the patient was having loose bowel movement with mucus dark and was complaining of lot of gas and cramping. The patient was given initially 3% saline. The patient also had some chemistries drawn before that including uric acid. The patient had been given since that time more fluids. Also, the patient had been started on Flagyl and vancomycin because C. difficile toxin came out to be positive both A and B. The patient states she is feeling better now. The patient's biochemical data has significantly improved today compared to initial admission. The patient's hemoglobin 13.1 gram percent. The patient's initial chemistries reveal sodium 123, potassium 4.1, chloride 95, CO2 content 21, BUN 13, creatinine down to 0.7. Uric acid done reveals 3.0 milligram percent. Calcium 7.7, albumin level reported 2.8 which has dropped from 3.5. Hemoglobin today was 12.5 grams percent with WBC count of 14,000, no differential available. Manual differential done reveals 70% neutrophils compared to 91% before. There is significant improvement in wellbeing as such, hydration seems to be okay. Cramps have improved and no other significant problems. The patient is eating much better and since we have the diagnosis, we have adequate appropriate antibiotic. PLAN: To continue with little extra salt in the food. Get a salt shaker, give it to her. Continue with the present IVs and may repeat the chemistries tomorrow further. DIAGNOSES: Remain as; 1. Clostridium difficile colitis with diarrhea with moderately severe hyponatremia, abdominal cramps, leg cramps. 2. Leukocytosis with malaise and other constitutional symptoms. 3. Lack of appetite before, but now this has improved. Hopefully, we would have controlled the problem. JOB# [id number]
[2019-01-21] MEDS: Hydrocodone/APAP 5mg/325mg Tab PO PRN ×3 (03:40→20:05)
--- NOTE | 2019-01-21 05:29 | Progress Notes ---
DATE: SUBJECTIVE: Chart was reviewed and the patient interviewed. Also discussed the patient's condition with the staff and reviewed records and labs. The patient is still anxious and she is still severely depressed. The patient also is withdrawn and interacting minimally with others. The patient denies any intention to harm herself or others, but she is still feeling hopeless. Otherwise, the patient is cooperative with her treatment. The patient was started on Cymbalta in a dose of 30 mg at bedtime. We will continue the same dose. The patient is still having diarrhea and C. diff positive. If the patient continued to be severely depressed, the patient can be transferred to [facility] when medically stable. JOB# [id number]
[2019-01-21] MEDS: Levothyroxine 0.075 Mg Tab PO SCH (07:48)
[2019-01-21] MEDS: Vancomycin HCL 250 mg /10mL UDC PO SCH ×4 (09:06→20:07)
[2019-01-21 09:41] LABS: ALB/GLOB RATIO 1.2 (1.0-1.8); ALBUMIN 2.8 gm/dL (3.7-5.3); ALKALINE PHOSPHATASE 56 U/L (34-104); ANION GAP 10.2 (7.0-16.0); BILIRUBIN,TOTAL 0.4 mg/dL (0.3-1.0); BUN - UREA NITROGEN 12 mg/dL (7-25); CALCIUM SERUM 7.5 mg/dL (8.6-10.3); CARBON DIOXIDE 21.1 mEq/L (21.0-31.0); CHLORIDE 90 mEq/L (98-107); CREATININE - SERUM 0.6 mg/dL (0.6-1.2); GLUCOSE 186 mg/dL (70-105); MAGNESIUM 2.1 mg/dL (1.9-2.7); POTASSIUM SERUM 4.3 mEq/L (3.5-5.1); SGOT 11 U/L (13-39); SGPT/ALT 8 U/L (7-52); TOTAL PROTEIN,SERUM 5.2 gm/dL (6.0-8.3)
[2019-01-21 09:43] LABS: HEMATOCRIT 37.9 % (41.0-60); HEMOGLOBIN 12.9 gm/dL (12-16); MEAN CELL VOLUME 94.8 fl (81-100); MEAN CORPUSCULAR HEMOGLOBIN 32.2 pg (27.0-31.0); PLATELET COUNT 295 Th/cmm (150-400); WHITE BLOOD COUNT 11.3 Th/cmm (4.8-10.8)
[2019-01-21 10:20] LABS: SODIUM SERUM 117 mEq/L (136-145)
[2019-01-21 10:22] LABS: BAND NEUTROPHILE 10 % (0-10); BASOPHIL 0 % (0-3); EOSINOPHIL 0 % (0-5); LYMPHOCYTE 11 % (20-50); MONOCYTE 8 % (2-10); NEUTROPHILS 71 % (40-80)
[2019-01-21] MEDS ORDERED: Sodium Chloride 3% 200 ML IV ONE (10:33)
--- NOTE | 2019-01-22 00:34 | Progress Notes ---
DATE: 01/21/2019 SUBJECTIVE: The patient was seen in her room. The patient is asleep, but easily arousable. The patient appears to be comfortable, in no acute distress. The patient is currently on contact isolation due to Clostridium difficile colitis. Otherwise, the patient in no acute distress. OBJECTIVE: VITAL SIGNS: Temperature 96.1, heart rate 80, blood pressure 113/74, respiration of 16, 99% on 2 liters via nasal cannula. HEENT: Head is atraumatic and normocephalic. Eyes, bilateral conjunctivae are clear. Bilateral pupils are equally round and reactive. NECK: Supple. No JVD. CARDIOVASCULAR: S1, S2, without murmur. PULMONARY: Clear to auscultation. GASTROINTESTINAL: Soft and nontender without guarding. Positive bowel sounds. MUSCULOSKELETAL: No clubbing. No cyanosis noted. ASSESSMENT: 1. Clostridium difficile colitis. 2. Hypertension. 3. Diabetes. 4. Dehydration. 5. Hypothyroidism. 6. Gastroesophageal reflux disease. PLAN: We will initiate discharge planning. The family refused long-term acute care. The patient will be discharged to [facility] facility when a bed is confirmed. Treatment plans were discussed with the patient's nurse. Treatment plans were discussed with Dr. Jorgensen. JOB# [id number]
[2019-01-22] MEDS: Hydrocodone/APAP 5mg/325mg Tab PO PRN ×2 (02:09→09:18)
[2019-01-22 06:04] LABS: % BASOPHILS 0.1 % (0.0-2.0); % EOSINOPHILS 3.2 % (0.0-5.0); % LYMPHOCYTES 14.2 % (20.0-50.0); % MONOCYTES 9.2 % (2.0-10.0); % NEUTROPHILS 73.3 % (40.0-80.0); EOSINOPHILE ABSOLUTE 0.3 Th/cmm (0.1-0.4); HEMATOCRIT 36.1 % (41.0-60); HEMOGLOBIN 12.3 gm/dL (12-16); LYMPHOCYTE ABSOLUTE 1.3 Th/cmm (1.5-3.0); MEAN CELL VOLUME 94.1 fl (81-100); MEAN CORPUSCULAR HEMOGLOBIN 32.2 pg (27.0-31.0); MEAN CORPUSCULAR HGB CONC 34.2 pg (28.0-36.0); MONOCYTE ABSOLUTE 0.9 Th/cmm (0.3-1.0); NEUTROPHILE ABSOLUTE 6.9 Th/cmm (1.8-8.0); PLATELET COUNT 319 Th/cmm (150-400); RED BLOOD COUNT 3.84 Mil/cmm (3.80-5.20); RED CELL DISTRIBUTION WIDTH 12.9 % (11.5-20.0); WHITE BLOOD COUNT 9.4 Th/cmm (4.8-10.8)
[2019-01-22 06:25] LABS: ANION GAP 8.5 (7.0-16.0); BUN - UREA NITROGEN 15 mg/dL (7-25); CALCIUM SERUM 7.6 mg/dL (8.6-10.3); CARBON DIOXIDE 19.7 mEq/L (21.0-31.0); CHLORIDE 97 mEq/L (98-107); CREATININE - SERUM 0.5 mg/dL (0.6-1.2); POTASSIUM SERUM 4.2 mEq/L (3.5-5.1); SODIUM SERUM 121 mEq/L (136-145)
[2019-01-22 06:42] LABS: GLUCOSE 109 mg/dL (70-105)
[2019-01-22] MEDS: Levothyroxine 0.075 Mg Tab PO SCH (06:48)
[2019-01-22] MEDS: Vancomycin HCL 250 mg /10mL UDC PO SCH ×4 (08:15→21:32)
[2019-01-22] MEDS: Bismuth Subsalicylate 236mL PO SCH ×2 (13:14→21:32)
--- NOTE | 2019-01-22 13:48 | Progress Notes ---
DATE: 01/21/2019 LOCATION: Room #30, bed 1. PROBLEMS: This patient presented with hyponatremia to the hospital. The patient also had diarrhea and weakness, cramping and muscle spasm. The patient's medications were reviewed and she was found to be having C. difficile colitis along with other problems of generalized weakness and history of hypertension. The patient's initial sodium was 116. Yesterday, the sodium has come up with treatment to 121. The patient has significant diarrhea last night, 5-6 bowel movements and the patient had been eating reasonably well. The patient was started on Flagyl and vancomycin orally yesterday. In spite of that, for some reason the patient's sodium fell down to 117 today. The patient is not feeling that bad, but is still not feeling good. Clinical examination reveals hydration seems to be okay. Chest is clear, good air entry. Heart sounds seem to be normal. Jugular venous pressure is not raised. No pedal edema noticed. The patient is complaining of some cramping. The patient is on baclofen for that. The patient is also on some other medications. Considering the fact that the patient's sodium has fallen down, would start on 3% saline. Would give 200 mL of saline over 6 hours. The patient's chemistries from today revealed the following: Sodium 117, potassium 4.3, chloride 90, CO2 content 21, BUN 12, creatinine 0.6, calcium 7.5, glucose 186, magnesium 2.1 and albumin 2.8. CBC revealed a hemoglobin of 12.8 and WBC count 11.3, platelet count was 293. Would repeat chemistries again and see the response, how the patient does. Otherwise, the patient seems to be stable, although she does have this problem, which can be really life threatening some time. Renal function remains at present okay. Greatly appreciate your opportunity to participate in the care of this patient. JOB# [id number]
--- NOTE | 2019-01-22 14:58 | Internal Medicine Prog Note ---
Internal Medicine Subjective - Subjective Service Date: 01/22/19 Patient seen and examined:: with staff Patient is:: awake, verbal Patient Complaints of:: other (Increased weakness.) Per staff patient has:: no adverse event, no episodes of fall Internal Medicine Objective - Results Result Diagrams: 01/22/19 05:40 01/22/19 05:40 Recent Labs: Laboratory Last Values WBC 9.4 Th/cmm (4.8-10.8) 01/22/19 05:40 RBC 3.84 Mil/cmm (3.80-5.20) 01/22/19 05:40 Hgb 12.3 gm/dL (12-16) 01/22/19 05:40 Hct 36.1 % (41.0-60) L 01/22/19 05:40 MCV 94.1 fl (81-100) 01/22/19 05:40 MCH 32.2 pg (27.0-31.0) H 01/22/19 05:40 MCHC Differential 34.2 pg (28.0-36.0) 01/22/19 05:40 RDW 12.9 % (11.5-20.0) 01/22/19 05:40 Plt Count 319 Th/cmm (150-400) 01/22/19 05:40 MPV 6.4 fl 01/22/19 05:40 Add Manual Diff YES 01/21/19 09:11 Neutrophils % 73.3 % (40.0-80.0) 01/22/19 05:40 Band Neutrophils % 10 % (0-10) 01/21/19 09:11 Lymphocytes % 14.2 % (20.0-50.0) L 01/22/19 05:40 Monocytes % 9.2 % (2.0-10.0) 01/22/19 05:40 Eosinophils % 3.2 % (0.0-5.0) 01/22/19 05:40 Basophils % 0.1 % (0.0-2.0) 01/22/19 05:40 Neutrophils (Manual) 71 % (40-80) 01/21/19 09:11 Lymphocytes 11 % (20-50) L 01/21/19 09:11 Monocytes 8 % (2-10) 01/21/19 09:11 Eosinophils 0 % (0-5) 01/21/19 09:11 Basophils 0 % (0-3) 01/21/19 09:11 Platelet Estimate ADEQUATE (NORMAL) 01/20/19 04:55 PT 10.9 SECONDS (9.5-11.5) 01/18/19 14:34 INR 1.05 (0.5-1.4) 01/18/19 14:34 PTT (Actin FS) 32.8 SECONDS (26.0-38.0) 01/18/19 14:34 Sodium 121 mEq/L (136-145) L 01/22/19 05:40 Potassium 4.2 mEq/L (3.5-5.1) 01/22/19 05:40 Chloride 97 mEq/L (98-107) L 01/22/19 05:40 Carbon Dioxide 19.7 mEq/L (21.0-31.0) L 01/22/19 05:40 Anion Gap 8.5 (7.0-16.0) 01/22/19 05:40 BUN 15 mg/dL (7-25) 01/22/19 05:40 Creatinine 0.5 mg/dL (0.6-1.2) L 01/22/19 05:40 Est GFR ( Amer) TNP 01/22/19 05:40 Est GFR (Non-Af Amer) TNP 01/22/19 05:40 BUN/Creatinine Ratio 30.0 01/22/19 05:40 Glucose 109 mg/dL (70-105) H D 01/22/19 05:40 Whole Bld Lactic Acid 1.90 mmol/L (0.60-1.99) 01/18/19 16:40 Uric Acid 3.0 mg/dL (2.3-6.6) 01/20/19 04:55 Calcium 7.6 mg/dL (8.6-10.3) L 01/22/19 05:40 Magnesium 2.1 mg/dL (1.9-2.7) 01/21/19 09:11 Total Bilirubin 0.4 mg/dL (0.3-1.0) 01/21/19 09:11 AST 11 U/L (13-39) L 01/21/19 09:11 ALT 8 U/L (7-52) 01/21/19 09:11 Alkaline Phosphatase 56 U/L (34-104) 01/21/19 09:11 Creatine Kinase 61 U/L (30-223) 01/18/19 14:34 Troponin I 0.03 ng/mL (0.01-0.05) 01/18/19 14:34 Total Protein 5.2 gm/dL (6.0-8.3) L 01/21/19 09:11 Albumin 2.8 gm/dL (3.7-5.3) L 01/21/19 09:11 Globulin 2.4 gm/dL 01/21/19 09:11 Albumin/Globulin Ratio 1.2 (1.0-1.8) 01/21/19 09:11 Urine Source MIDSTREAM 01/18/19 16:00 Urine Color YELLOW 01/18/19 16:00 Urine Clarity CLEAR (CLEAR) 01/18/19 16:00 Urine pH 5.5 (4.6 - 8.0) 01/18/19 16:00 Ur Specific [place] 1.020 (1.005-1.030) 01/18/19 16:00 Urine Protein NEGATIVE mg/dL (NEGATIVE) 01/18/19 16:00 Urine Glucose (UA) 100 mg/dL (NEGATIVE) H 01/18/19 16:00 Urine Ketones NEGATIVE mg/dL (NEGATIVE) 01/18/19 16:00 Urine Blood TRACE (NEGATIVE) 01/18/19 16:00 Urine Nitrate NEGATIVE (NEGATIVE) 01/18/19 16:00 Urine Bilirubin NEGATIVE (NEGATIVE) 01/18/19 16:00 Urine Urobilinogen 0.2 E.U./dL (0.2 - 1.0) 01/18/19 16:00 Ur Leukocyte Esterase NEGATIVE (NEGATIVE) 01/18/19 16:00 Urine RBC 10-25 /hpf (0-5) H 01/18/19 16:00 Urine WBC NONE SEEN /hpf (0-5) 01/18/19 16:00 Ur Epithelial Cells RARE /lpf (FEW) 01/18/19 16:00 Urine Bacteria NONE SEEN /hpf (NONE SEEN) 01/18/19 16:00 Fine Granular Casts 0-2 /lpf (NONE SEEN) H 01/18/19 16:00 RBC Casts 0-2 /lpf (NONE SEEN) H 01/18/19 16:00 - Physical Exam Vitals and I&O: Vital Signs Temp 97.1 F 01/22/19 11:38 Pulse 68 01/22/19 11:38 Resp 16 01/22/19 13:31 BP 136/62 01/22/19 11:38 Pulse Ox 98 01/22/19 11:38 Intake & Output 01/21/19 01/22/19 01/22/19 18:59 06:59 18:59 Intake Total 750 800 Output Total 4 Balance 746 800 Weight (lbs) 72.665 kg 72.665 kg Intake: Oral 750 800 Output: Urine 4 Other: # Voids 3 # Bowel Movements 2 3 Stool Characteristics Liquid Liquid Liquid Brown Brown Brown Weight Source Bedscale Bedscale Active Medications: Current Medications Acetaminophen/Hydrocodone Bitart ([place] 5mg/325mg) 1 tab PO Q6H PRN PRN Reason: Severe Pain Stop: 03/20/19 21:11 Last Admin: 01/22/19 09:18 Dose: 1 tab Alprazolam (Xanax) 0.25 mg PO Q12HR [facility]; Protocol Stop: 03/19/19 20:59 Last Admin: 01/22/19 08:14 Dose: Not Given Alprazolam (Xanax) 0.25 mg PO DAILY PRN; Protocol PRN Reason: Anxiety Stop: 03/20/19 17:41 Last Admin: 01/21/19 23:25 Dose: 0.25 mg Amlodipine Besylate (Norvasc) 5 mg PO DAILY [facility] Stop: 03/21/19 08:59 Last Admin: 01/22/19 08:14 Dose: Not Given Baclofen (Lioresal) 10 mg PO TID PRN PRN Reason: Leg Cramps Stop: 03/19/19 20:59 Last Admin: 01/22/19 08:17 Dose: 10 mg Bismuth Subsalicylate (Pepto-Bismol) 30 ml PO TID [facility] Stop: 01/24/19 13:59 Last Admin: 01/22/19 13:14 Dose: 30 ml Celecoxib (Celebrex) 100 mg PO BID [facility] Stop: 03/21/19 16:59 Last Admin: 01/22/19 08:14 Dose: Not Given Cholestyramine Resin (Questran) 4 gm PO BID [facility] Stop: 03/22/19 08:59 Last Admin: 01/22/19 08:14 Dose: 4 gm Dorzolamide HCl (Trusopt 2% Ophth Soln) 1 drop EACH EYE BID TC Stop: 03/21/19 17:29 Last Admin: 01/22/19 08:12 Dose: 1 drop Duloxetine HCl (Cymbalta) 60 mg PO HS TC; Protocol Stop: 03/23/19 20:59 Famotidine (Pepcid) 20 mg PO DAILY TC Stop: 03/21/19 08:59 Last Admin: 01/22/19 08:12 Dose: 20 mg Dextrose/Sodium Chloride (D5-0.9%Ns) 1,000 mls @ 30 mls/hr IV .Q24H TC Stop: 03/20/19 17:29 Last Admin: 01/20/19 21:27 Dose: 30 mls/hr Levothyroxine Sodium (Synthroid) 0.075 mg PO QDAC TC Stop: 03/21/19 07:29 Last Admin: 01/22/19 06:48 Dose: 0.075 mg Lisinopril (Zestril) 20 mg PO DAILY TC Stop: 03/21/19 08:59 Last Admin: 01/22/19 08:13 Dose: Not Given Simethicone (Mylicon) 80 mg PO TID PRN PRN Reason: Gas Stop: 03/20/19 21:14 Last Admin: 01/20/19 20:11 Dose: 80 mg Timolol Maleate (Timoptic 0.5% Ophth Soln) 1 drop EACH EYE BID TC Stop: 03/21/19 20:59 Last Admin: 01/22/19 08:12 Dose: 1 drop Vancomycin HCl (Vancomycin Oral) 250 mg PO QID TC Stop: 03/21/19 08:59 Last Admin: 01/22/19 13:13 Dose: 250 mg Physical Exam: 78 y/o female patient has weakness, cramping and muscle spasms,depression and anxiety. General: weak, demented HEENT: NC/AT Neck: Supple Lungs: CTAB Cardiovascular: RRR, Normal S1 Abdomen: soft, non-tender Extremities: clear Neurological: no change Internal Medicine Assmt/Plan - Assessment Assessment: Muscle spasms. Diabetes. Arthritis. Dementia. Htn. Hx of Dyslipidemia. Increased weakness. Hypothyroidism. Anxiety. Depressed mood disorder. - Plan Plan: Continuation of care. Monitor Labs. Continue present meds as directed. Monitor vitals, Continue BP meds as directed. Monitor Diet/Nutritional support. Psych management per Psych. Pain Management. Physical therapy. Occupational therapy. Fall precaution, frequent nursing rounds, and as needed restraints to prevent fall. Safety precaution. Supportive care. Continue collaborating with consulting specialists, case management and nursing team. Will Monitor patient and continue present care management. Nutritional Asmnt/Malnutr-PDOC - Dietary Evaluation Malnutrition Findings (Please click <Entered> for more info): Nutritional Asmnt/Malnutrition Start: 01/19/19 14: 04 Text: Status: Complete Freq: Protocol: Document 01/19/19 14:04 SERAFIN (Rec: 01/19/19 14:29 SERAFIN [email or web address]) Nutritional Asmnt/Malnutrition Patient General Information Nutritional Screening High Risk Diagnosis HYPONATREMIA, DEHYDRATION, SEPSIS Pertinent Medical Hx/Surgical Hx HTN, DM, DYSLIPIDEMIA, ARTHRITIS, DEMENTIA Subjective Information PT IS A 78 YEAR OLD FEMALE ADMITTED D/T HYPONATREMIA, DEHYDRATION, SEPSIS. HT: 55 WT: 126 (57.27KG) BMI: 21.01 (Normal) GI: WNL, Non-tender, round BM: 01/19 x 6 I/O: 400/500 (-100) SKIN: Intact, redness on Sacrum LAUREN: 15 DIET ORDER: PUREED ESTIMATED ENERGY NEEDS: (Based on CBW) 5303-0370 KCALS (25-30 KCALS/ KG) 57-68G PRO (1-1.2 G/KG) 5455-6069 ML FLUIDS (25-30 ML/ KG) PT PO INTAKE 50% AT BREAKFAST AND 75% AT LUNCH ON 01/19, PER ERUM PINO IS CURRENTLY PROVIDING AN ESTIMATED 2537 KCALS AND 116.8 GM PRO. WITH PT PO INTAKE, PT IS RECEIVING AN ESTIMATED 1585 KCALS AND 73 PRO TO MEET 100% KCAL AND 100% PRO NEEDS-ADEQUATE. Consult on Blood sugar 228: Glucose Level decrease to 118 on 01/19. Will continue to monitor. Current Diet Order/ Nutrition Support Pureed Pertinent Medications D5-0.9na, Magnesium Sulfate @ 25mls/HR @2HRS, Hypertonic 3% @30mls/hr Pertinent Labs 01/19 HGB/HCT 13.1/38.1, Na 119 , Cl 88, GLUC 118, Ca 8.1 01/18 HGB/HCT 13.8/40.7, Na 116 , Cl 84, BUN/Cr 30/1.0, GLUC 281, Alb 3.5 Nutritional Hx/Data Height 1.65 m Height (Calculated Centimeters) 165.1 Current Weight (lbs) 57.153 kg Weight (Calculated Kilograms) 57.2 Weight (Calculated Grams) 87596.6 [place] Body Weight 57 kg % [place] Body Weight 105 Body Mass Index (BMI) 20.9 Weight Status Approriate GI Symptoms GI Symptoms None Last BM 01/19 x 6 Skin Integrity/Comment: Intact, redness on Sacrum Current %PO Fair (50-74%) Estimated Nutritional Goals BEE in Kcals: Using Current wt Calories/Kcals/Kg 25-30 Kcals Calculated 0834-9799 Protein: Using Current wt Protein g/k-1.2 Protein Calculated 57-68 Fluid: ml 3210-9571 ML FLUIDS (25-30 ML/ KG) Nutritional Problem 1. Problem Problem Altered nutrition related labs Etiology R/T medical condition Signs/Symptoms: AEB lab result Na 119, Cl 88, GLUC 118, Ca 8.1 Malnutrition Related to Morbid Obesity Malnutrition related to morbid obesity No Intervention/Recommendation Comments 1.Continue puree diet as ordered. Expected Outcomes/Goals Expected Outcomes/Goals 1. MONITOR WT, NUTRITION RELATED LABS, AND SKIN INTEGRITY TO TREND WNL 2. F/U LOW RISK IN 7 DAYS
[2019-01-22] MEDS: D5-0.9%NS 1,000 ML IV SCH (15:45)
--- NOTE | 2019-01-23 00:07 | Progress Notes ---
DATE: 01/22/2019 SUBJECTIVE: Chart was reviewed and the patient interviewed. Also discussed the patient's condition with the staff and reviewed records and labs. The patient is still severely anxious and she is still in a depressed mood. The patient said "I am in pain." The patient is still complaining of pain in different areas of her body, especially her legs. The patient also still feels hopeless at times. Otherwise, the patient denies any thoughts of suicide. The patient also refused to take Cymbalta yesterday thinking that it is for depression and saying that she is not depressed. I explained to the patient that it is for also depression and anxiety and pain, and hopefully, the patient will start to take it, and at the same time, because of increased pain, we will increase it to 60 mg a day. [facility]# [id number]
--- NOTE | 2019-01-23 00:39 | Progress Notes ---
DATE: AGE OF THE PATIENT: 78 years. SEX: Female. RACE: . HISTORY OF PRESENT ILLNESS AGE: The patient was admitted about 4 days ago because of abdominal cramping, diarrhea, weakness and significantly low sodium. The patient was evaluated at that time and was found to be having C. difficile colitis. The patient is also borderline low on magnesium, but the reason for hypomagnesemia and hyponatremia was not clear, likely because of significant loss of sodium due to diarrhea and not able to compensate for it. The patient also had findings of some muscle aches and cramping for which the patient had been also on baclofen. The patient was positive for C. difficile A and B, both the toxins, in the stool. The patient was also seen by Dr. Andrés Scanlon yesterday and was started day before yesterday on vancomycin oral along with Flagyl. In addition to that, the patient had got some 3% saline to correct that problem. Unfortunately, yesterday, the patient's sodium dropped back again to 117 because of which I gave 200 mL of 3% saline more over about 6 hours period of time. The patient's sodium came up to 121, but it still has not gone up. The patient had been advised to take extra salt in the food as to see whether she can compensate without giving 3% saline. The patient is also getting D5 normal saline. PHYSICAL EXAMINATION: VITAL SIGNS: In addition to that, the patient's vitals, this morning revealed at about 11:00, blood pressure 136, diastolic pressure of 62, respiratory rate 16 per minute, temperature 97.1, heart rate 68 per minute, and O2 saturation 98%. GENERAL: The patient states that the abdominal cramps are better, but still she feels somewhat weak. NECK: Jugular venous pressure was not raised. CHEST: Essentially showed good air entry. No significant rales or rhonchi were noticed. HEART: Sounds seem to be normal. EXTREMITIES: There was no edema noticed, but hydration seemed to be better. LABORATORY DATA: Other chemistries available were potassium 4.2, chloride 97, CO2 content 19.7. Glucose level was 109, BUN was 15, creatinine 0.5, calcium level was 7.6. Hemoglobin was 12.3 with a WBC count of 9.4, red blood cells 3.84, platelet count 319. In view of the fact that the patient is feeling well, would continue the same thing and would review the chemistries tomorrow. DIAGNOSES: Remain the same: 1. History of hypertension, on antihypertensive medications. 3. Clostridium difficile colitis with significant hyponatremia. 4. Cramping, real etiology not known. Since the patient had been chronically on baclofen and other medications as I understand, would review other problems if any. JOB# [id number]
[2019-01-23] MEDS: Hydrocodone/APAP 5mg/325mg Tab PO PRN (03:11)
[2019-01-23 04:37] LABS: % EOSINOPHILS 3.2 % (0.0-5.0); % LYMPHOCYTES 13.8 % (20.0-50.0); % MONOCYTES 7.2 % (2.0-10.0); % NEUTROPHILS 75.8 % (40.0-80.0); EOSINOPHILE ABSOLUTE 0.3 Th/cmm (0.1-0.4); HEMATOCRIT 37.8 % (41.0-60); HEMOGLOBIN 12.9 gm/dL (12-16); LYMPHOCYTE ABSOLUTE 1.4 Th/cmm (1.5-3.0); MEAN CELL VOLUME 94.2 fl (81-100); MONOCYTE ABSOLUTE 0.7 Th/cmm (0.3-1.0); NEUTROPHILE ABSOLUTE 7.6 Th/cmm (1.8-8.0); PLATELET COUNT 351 Th/cmm (150-400); RED BLOOD COUNT 4.02 Mil/cmm (3.80-5.20); RED CELL DISTRIBUTION WIDTH 13.2 % (11.5-20.0)
[2019-01-23 08:23] LABS: ANION GAP 10.4 (7.0-16.0); BUN - UREA NITROGEN 11 mg/dL (7-25); CALCIUM SERUM 7.8 mg/dL (8.6-10.3); CARBON DIOXIDE 21.1 mEq/L (21.0-31.0); CHLORIDE 98 mEq/L (98-107); CREATININE - SERUM 0.5 mg/dL (0.6-1.2); GLUCOSE 110 mg/dL (70-105); POTASSIUM SERUM 4.5 mEq/L (3.5-5.1); SODIUM SERUM 125 mEq/L (136-145)
[2019-01-23] MEDS: Levothyroxine 0.075 Mg Tab PO SCH (09:04)
[2019-01-23] MEDS: Bismuth Subsalicylate 236mL PO SCH ×2 (09:07→13:28)
[2019-01-23] MEDS: Vancomycin HCL 250 mg /10mL UDC PO SCH ×2 (09:08→13:27)
--- NOTE | 2019-01-23 11:17 | Internal Medicine Prog Note ---
Internal Medicine Subjective - Subjective Service Date: 01/23/19 Patient seen and examined:: with staff Patient is:: awake, verbal Patient Complaints of:: other (Increased weakness.) Per staff patient has:: no adverse event, no episodes of fall Internal Medicine Objective - Results Result Diagrams: 01/23/19 04:10 01/23/19 04:10 Recent Labs: Laboratory Last Values WBC 10.0 Th/cmm (4.8-10.8) 01/23/19 04:10 RBC 4.02 Mil/cmm (3.80-5.20) 01/23/19 04:10 Hgb 12.9 gm/dL (12-16) 01/23/19 04:10 Hct 37.8 % (41.0-60) L 01/23/19 04:10 MCV 94.2 fl (81-100) 01/23/19 04:10 MCH 32.0 pg (27.0-31.0) H 01/23/19 04:10 MCHC Differential 34.0 pg (28.0-36.0) 01/23/19 04:10 RDW 13.2 % (11.5-20.0) 01/23/19 04:10 Plt Count 351 Th/cmm (150-400) 01/23/19 04:10 MPV 6.7 fl 01/23/19 04:10 Add Manual Diff YES 01/21/19 09:11 Neutrophils % 75.8 % (40.0-80.0) 01/23/19 04:10 Band Neutrophils % 10 % (0-10) 01/21/19 09:11 Lymphocytes % 13.8 % (20.0-50.0) L 01/23/19 04:10 Monocytes % 7.2 % (2.0-10.0) 01/23/19 04:10 Eosinophils % 3.2 % (0.0-5.0) 01/23/19 04:10 Basophils % 0.0 % (0.0-2.0) 01/23/19 04:10 Neutrophils (Manual) 71 % (40-80) 01/21/19 09:11 Lymphocytes 11 % (20-50) L 01/21/19 09:11 Monocytes 8 % (2-10) 01/21/19 09:11 Eosinophils 0 % (0-5) 01/21/19 09:11 Basophils 0 % (0-3) 01/21/19 09:11 Platelet Estimate ADEQUATE (NORMAL) 01/20/19 04:55 PT 10.9 SECONDS (9.5-11.5) 01/18/19 14:34 INR 1.05 (0.5-1.4) 01/18/19 14:34 PTT (Actin FS) 32.8 SECONDS (26.0-38.0) 01/18/19 14:34 Sodium 125 mEq/L (136-145) L 01/23/19 04:10 Potassium 4.5 mEq/L (3.5-5.1) 01/23/19 04:10 Chloride 98 mEq/L (98-107) 01/23/19 04:10 Carbon Dioxide 21.1 mEq/L (21.0-31.0) 01/23/19 04:10 Anion Gap 10.4 (7.0-16.0) 01/23/19 04:10 BUN 11 mg/dL (7-25) 01/23/19 04:10 Creatinine 0.5 mg/dL (0.6-1.2) L 01/23/19 04:10 Est GFR ( Amer) TNP 01/23/19 04:10 Est GFR (Non-Af Amer) TNP 01/23/19 04:10 BUN/Creatinine Ratio 22.0 01/23/19 04:10 Glucose 110 mg/dL (70-105) H 01/23/19 04:10 Whole Bld Lactic Acid 1.90 mmol/L (0.60-1.99) 01/18/19 16:40 Uric Acid 3.0 mg/dL (2.3-6.6) 01/20/19 04:55 Calcium 7.8 mg/dL (8.6-10.3) L 01/23/19 04:10 Magnesium 2.1 mg/dL (1.9-2.7) 01/21/19 09:11 Total Bilirubin 0.4 mg/dL (0.3-1.0) 01/21/19 09:11 AST 11 U/L (13-39) L 01/21/19 09:11 ALT 8 U/L (7-52) 01/21/19 09:11 Alkaline Phosphatase 56 U/L (34-104) 01/21/19 09:11 Creatine Kinase 61 U/L (30-223) 01/18/19 14:34 Troponin I 0.03 ng/mL (0.01-0.05) 01/18/19 14:34 Total Protein 5.2 gm/dL (6.0-8.3) L 01/21/19 09:11 Albumin 2.8 gm/dL (3.7-5.3) L 01/21/19 09:11 Globulin 2.4 gm/dL 01/21/19 09:11 Albumin/Globulin Ratio 1.2 (1.0-1.8) 01/21/19 09:11 Urine Source MIDSTREAM 01/18/19 16:00 Urine Color YELLOW 01/18/19 16:00 Urine Clarity CLEAR (CLEAR) 01/18/19 16:00 Urine pH 5.5 (4.6 - 8.0) 01/18/19 16:[address] [place] [address] 1.020 (1.005-1.030) 01/18/19 16:00 Urine Protein NEGATIVE mg/dL (NEGATIVE) 01/18/19 16:00 Urine Glucose (UA) 100 mg/dL (NEGATIVE) H 01/18/19 16:00 Urine Ketones NEGATIVE mg/dL (NEGATIVE) 01/18/19 16:00 Urine Blood TRACE (NEGATIVE) 01/18/19 16:00 Urine Nitrate NEGATIVE (NEGATIVE) 01/18/19 16:00 Urine Bilirubin NEGATIVE (NEGATIVE) 01/18/19 16:00 Urine Urobilinogen 0.2 E.U./dL (0.2 - 1.0) 01/18/19 16:00 Ur Leukocyte Esterase NEGATIVE (NEGATIVE) 01/18/19 16:00 Urine RBC 10-25 /hpf (0-5) H 01/18/19 16:00 Urine WBC NONE SEEN /hpf (0-5) 01/18/19 16:00 Ur Epithelial Cells RARE /lpf (FEW) 01/18/19 16:00 Urine Bacteria NONE SEEN /hpf (NONE SEEN) 01/18/19 16:00 Fine Granular Casts 0-2 /lpf (NONE SEEN) H 01/18/19 16:00 RBC Casts 0-2 /lpf (NONE SEEN) H 01/18/19 16:00 - Physical Exam Vitals and I&O: Vital Signs Temp 97.3 F 01/23/19 08:55 Pulse 64 01/23/19 10:04 Resp 18 01/23/19 08:55 BP 108/51 01/23/19 10:04 Pulse Ox 99 01/23/19 08:55 Intake & Output 01/22/19 01/23/19 01/23/19 18:59 06:59 18:59 Intake Total 590.5 Balance 590.5 Weight (lbs) 58.196 kg Intake: Intake, IV Amount 440.5 D5-0.9%Ns 1,000 ml @ 30 440.5 mls/hr IV .Q24H [facility] Rx#: [id number] Oral 150 Other: # Voids 2 # Bowel Movements 2 Stool Characteristics Liquid Soft Brown Liquid Brown Black Weight Source Estimated Active Medications: Current Medications Acetaminophen/Hydrocodone Bitart ([place] 5mg/325mg) 1 tab PO Q6H PRN PRN Reason: Severe Pain Stop: 03/20/19 21:11 Last Admin: 01/23/19 03:11 Dose: 1 tab Alprazolam (Xanax) 0.25 mg PO Q12HR TC; Protocol Stop: 03/19/19 20:59 Last Admin: 01/23/19 09:05 Dose: Not Given Alprazolam (Xanax) 0.25 mg PO DAILY PRN; Protocol PRN Reason: Anxiety Stop: 03/20/19 17:41 Last Admin: 01/21/19 23:25 Dose: 0.25 mg Amlodipine Besylate (Norvasc) 5 mg PO DAILY [facility] Stop: 03/21/19 08:59 Last Admin: 01/23/19 10:04 Dose: Not Given Baclofen (Lioresal) 10 mg PO TID PRN PRN Reason: Leg Cramps Stop: 03/19/19 20:59 Last Admin: 01/22/19 08:17 Dose: 10 mg Bismuth Subsalicylate (Pepto-Bismol) 30 ml PO TID [facility] Stop: 01/24/19 13:59 Last Admin: 01/23/19 09:07 Dose: 30 ml Celecoxib (Celebrex) 100 mg PO BID [facility] Stop: 03/21/19 16:59 Last Admin: 01/23/19 09:06 Dose: 100 mg Cholestyramine Resin (Questran) 4 gm PO BID TC Stop: 03/22/19 08:59 Last Admin: 01/23/19 09:07 Dose: 4 gm Dorzolamide HCl (Trusopt 2% Ophth Soln) 1 drop EACH EYE BID TC Stop: 03/21/19 17:29 Last Admin: 01/23/19 09:08 Dose: 1 drop Duloxetine HCl (Cymbalta) 60 mg PO HS TC; Protocol Stop: 03/23/19 20:59 Last Admin: 01/22/19 21:32 Dose: 60 mg Famotidine (Pepcid) 20 mg PO DAILY TC Stop: 03/21/19 08:59 Last Admin: 01/23/19 09:04 Dose: 20 mg Dextrose/Sodium Chloride (D5-0.9%Ns) 1,000 mls @ 30 mls/hr IV .Q24H TC Stop: 03/20/19 17:29 Last Infusion: 01/23/19 06:26 Dose: 30 mls/hr Levothyroxine Sodium (Synthroid) 0.075 mg PO QDAC TC Stop: 03/21/19 07:29 Last Admin: 01/23/19 09:04 Dose: 0.075 mg Lisinopril (Zestril) 20 mg PO DAILY TC Stop: 03/21/19 08:59 Last Admin: 01/23/19 10:04 Dose: Not Given Simethicone (Mylicon) 80 mg PO TID PRN PRN Reason: Gas Stop: 03/20/19 21:14 Last Admin: 01/20/19 20:11 Dose: 80 mg Timolol Maleate (Timoptic 0.5% Oph Soln) 1 drop EACH EYE BID TC Stop: 03/21/19 20:59 Last Admin: 01/23/19 09:08 Dose: 1 drop Vancomycin HCl (Vancomycin Oral) 250 mg PO QID TC Stop: 03/21/19 08:59 Last Admin: 01/23/19 09:08 Dose: 250 mg Physical Exam: 78 y/o female patient is c/o body pain, depression and anxiety. General: weak, demented HEENT: NC/AT Neck: Supple Lungs: CTAB Cardiovascular: RRR, Normal S1 Abdomen: soft, non-tender Extremities: pain (c/o body pain and leg pain.) Neurological: no change Internal Medicine Assmt/Plan - Assessment Assessment: Chronic pain. Muscle spasms. Diabetes. Arthritis. Dementia. Htn. Hx of Dyslipidemia. Increased weakness. Hypothyroidism. Anxiety. Depressed mood disorder. - Plan Plan: Continuation of care. Monitor Labs. Continue present meds as directed. Monitor vitals, Continue BP meds as directed. Monitor Diet/Nutritional support. Psych management per Psych. Pain Management. Physical therapy. Occupational therapy. Fall precaution, frequent nursing rounds, and as needed restraints to prevent fall. Safety precaution. Supportive care. Continue collaborating with consulting specialists, case management and nursing team. Will Monitor patient and continue present care management. Nutritional Asmnt/Malnutr-PDOC - Dietary Evaluation Malnutrition Findings (Please click <Entered> for more info): Nutritional Asmnt/Malnutrition Start: 01/19/19 14: 04 Text: Status: Complete Freq: Protocol: Document 01/19/19 14:04 SERAFIN (Rec: 01/19/19 14:29 SERAFIN [email or web address]) Nutritional Asmnt/Malnutrition Patient General Information Nutritional Screening High Risk Diagnosis HYPONATREMIA, DEHYDRATION, SEPSIS Pertinent Medical Hx/Surgical Hx HTN, DM, DYSLIPIDEMIA, ARTHRITIS, DEMENTIA Subjective Information PT IS A 78 YEAR OLD FEMALE ADMITTED D/T HYPONATREMIA, DEHYDRATION, SEPSIS. HT: 55 WT: 126 (57.27KG) BMI: 21.01 (Normal) GI: WNL, Non-tender, round BM: 01/19 x 6 I/O: 400/500 (-100) SKIN: Intact, redness on Sacrum LAUREN: 15 DIET ORDER: PUREED ESTIMATED ENERGY NEEDS: (Based on CBW) 2647-0974 KCALS (25-30 KCALS/ KG) 57-68G PRO (1-1.2 G/KG) 3999-4448 ML FLUIDS (25-30 ML/ KG) PT PO INTAKE 50% AT BREAKFAST AND 75% AT LUNCH ON 01/19, PER RN TANNER PINO IS CURRENTLY PROVIDING AN ESTIMATED 2537 KCALS AND 116.8 GM PRO. WITH PT PO INTAKE, PT IS RECEIVING AN ESTIMATED 1585 KCALS AND 73 PRO TO MEET 100% KCAL AND 100% PRO NEEDS-ADEQUATE. Consult on Blood sugar 228: Glucose Level decrease to 118 on 01/19. Will continue to monitor. Current Diet Order/ Nutrition Support Pureed Pertinent Medications D5-0.9na, Magnesium Sulfate @ 25mls/HR @2HRS, Hypertonic 3% @30mls/hr Pertinent Labs 01/19 HGB/HCT 13.1/38.1, Na 119 , Cl 88, GLUC 118, Ca 8.1 01/18 HGB/HCT 13.8/40.7, Na 116 , Cl 84, BUN/Cr 30/1.0, GLUC 281, Alb 3.5 Nutritional Hx/Data Height 1.65 m Height (Calculated Centimeters) 165.1 Current Weight (lbs) 57.153 kg Weight (Calculated Kilograms) 57.2 Weight (Calculated Grams) 10667.6 [place] Body Weight 57 kg % [place] Body Weight 105 Body Mass Index (BMI) 20.9 Weight Status Approriate GI Symptoms GI Symptoms None Last BM 01/19 x 6 Skin Integrity/Comment: Intact, redness on Sacrum Current %PO Fair (50-74%) Estimated Nutritional Goals BEE in Kcals: Using Current wt Calories/Kcals/Kg 25-30 Kcals Calculated 0705-7731 Protein: Using Current wt Protein g/k-1.2 Protein Calculated 57-68 Fluid: ml 8396-7543 ML FLUIDS (25-30 ML/ KG) Nutritional Problem 1. Problem Problem Altered nutrition related labs Etiology R/T medical condition Signs/Symptoms: AEB lab result Na 119, Cl 88, GLUC 118, Ca 8.1 Malnutrition Related to Morbid Obesity Malnutrition related to morbid obesity No Intervention/Recommendation Comments 1.Continue puree diet as ordered. Expected Outcomes/Goals Expected Outcomes/Goals 1. MONITOR WT, NUTRITION RELATED LABS, AND SKIN INTEGRITY TO TREND WNL 2. F/U LOW RISK IN 7 DAYS
--- NOTE | 2019-01-24 02:44 | Progress Notes ---
DATE: SUBJECTIVE: Chart reviewed and the patient interviewed. Also discussed the patient's condition with the staff and reviewed the records and labs. The patient's affect is brighter. The patient seems to be slightly less depressed, but she is still complaining of severe pain. The patient also is still feeling hopeless and is still guarded. Otherwise, the patient is compliant, was taking her medications with no side effect of medications. ASSESSMENT: The patient is still depressed but not suicidal is compliant, was taking her medications. TREATMENT PLAN: We will continue monitoring her behavior and her condition closely. Also, we will continue adjusting psychotropic medications. The patient also might get some benefit from going to [facility] to work on her ineffective coping and on her chronic pain when she is medically stable. Otherwise, the patient can return back to [facility]. JOB# [id number]
== END 2019-01-23 15:55 | DRG 871 ==
LOC: ER 13:28 → TELE 17:50
PROVIDERS: ADMIT Internal Medicine; ATTEND Internal Medicine
DX: A41.9 Sepsis, unspecified organism (principal); N17.0 Acute kidney failure with tubular necrosis; J18.9 Pneumonia, unspecified organism; N39.0 Urinary tract infection, site not specified; E87.1 Hypo-osmolality and hyponatremia; E44.0 Moderate protein-calorie malnutrition; E87.2 Acidosis; A04.72 Enterocolitis due to Clostridium difficile, not specified as recurrent; I10 Essential (primary) hypertension; E83.42 Hypomagnesemia; E83.51 Hypocalcemia; M62.838 Other muscle spasm; R62.7 Adult failure to thrive; R65.20 Severe sepsis without septic shock; E11.65 Type 2 diabetes mellitus with hyperglycemia; E86.0 Dehydration; E03.9 Hypothyroidism, unspecified; G89.29 Other chronic pain; M19.90 Unspecified osteoarthritis, unspecified site; E78.5 Hyperlipidemia, unspecified; F32.9 Major depressive disorder, single episode, unspecified; F03.90 Unspecified dementia, unspecified severity, without behavioral disturbance, psychotic disturbance, mood disturbance, and anxiety; F41.9 Anxiety disorder, unspecified; Z79.899 Other long term (current) drug therapy
CPT/HCPCS: 36415-UA; 71045-TC; 80048-TC; 80053-TC; 81001-TC; 82550-TC; 83036-90; 83605; 83735-TC; 84484-TC; 84550-TC; 85007-TC; 85025-TC; 85610-TC; 85730-TC; 87230-TC; 90799; 93005; 94760; J1815; J1956; J3370; J3475; J7030; J7042; J7131; Z7610